=== PATIENT | male | born 1975 | race Caucasian/White ===

== ENCOUNTER 2018-01-20 09:36 | Emergency (ER) | payer MEDICAID, OTHER ==
--- NOTE | 2018-01-20 10:15 | EDPHY ---
H & P Time Seen by Provider: 01/20/18 09:49 HPI/ROS: CHIEF COMPLAINT: Left flank pain HISTORY OF PRESENT ILLNESS: 42-year-old male presents to the emergency department by private vehicle complaining of left flank pain intermittently over last 2 months. The patient states "I think I a kidney stone that is stuck ". He states that he has passed 2 kidney stones on the left side in the past. He has seen his primary care provider for this 3 times in the last 2 months when the pain is really bad. He has had plain film x-rays which have been negative. He is requesting a CT scan. He denies urinary symptoms. He denies symptoms in the right flank. Denies testicular pain. He denies chest pain or difficulty breathing. Denies abdominal pain. No fevers or chills. REVIEW OF SYSTEMS: Constitutional: No fever, no chills. Eyes: No double or blurry vision. ENT: No sore throat. Respiratory: No cough, no shortness of breath. Cardiac: No chest pain. Gastrointestinal: No abdominal pain, vomiting or diarrhea. Genitourinary: No dysuria. Musculoskeletal: Flank pain as above. No neck pain. Skin: No rashes. Neurological: No headache. Past Medical/Surgical History: Kidney stone x2 Social History: Single and lives in [place] Smoking Status: Never smoked Physical Exam: General Appearance: Alert, no distress. Slightly anxious. Eyes: Pupils equal and round. Extraocular motions are all intact. ENT: Mouth: Mucous membranes moist. Respiratory: No wheezing, rhonchi, or rales, lungs are clear to auscultation. Cardiovascular: Regular rate and rhythm. Gastrointestinal: Abdomen is soft and nontender, no masses, no rebound or guarding, bowel sounds normal. Positive CVA tenderness on the left, none on the right. Neurological: Alert and oriented x 3, cranial nerves II through XII grossly intact Skin: Warm and dry, no rashes. Musculoskeletal: Nontender to palpate along the cervical, thoracic or lumbar spine. Neck is supple. Extremities: Full range of motion and no peripheral edema. Psychiatric: Patient is oriented X 3, there is no agitation. Constitutional: Initial Vital Signs Temperature (C) 36.4 C 01/20/18 09:40 Heart Rate 70 01/20/18 09:40 Respiratory Rate 18 01/20/18 09:40 Blood Pressure 101/72 05/31/18 09:40 O2 Sat (%) 99 01/20/18 09:40 O2 Delivery Mode Room Air Allergies/Adverse Reactions: No Known Allergies Allergy (Verified 01/20/18 09:40) Home Medications: Medication Instructions Recorded NK [No Known Home Meds] 01/20/18 Medical Decision Making - Diagnostics Imaging Results: Imaging Impressions Abdomen/Pelvis CT 01/20/18 10:29 Impression: 1. Normal kidneys. No hydronephrosis, nephrolithiasis or ureteral calculi. 2. Normal appendix and bowel pattern. 3. No free fluid or localized intra-abdominal inflammatory process. Findings discussed with Emergency Department physician, Jena Mac PA-C on January 20, 2018 at 1108 hours. Attention: This CT examination is specifically designed to evaluate patients who are clinically suspected of having acute obstructive uropathy. This examination does not use radiographic contrast, and as such, provides only a limited evaluation of the abdomen, pelvis and retroperitoneum. If there is further clinical suspicion for pathological conditions other than obstructive uropathy, a complete CT evaluation of the abdomen and pelvis utilizing intravenous, oral, and rectal contrast should be considered. Imaging: Discussed imaging studies w/ crew caller Radiologist ED Course/Re-evaluation: 42-year-old male presents to the emergency department with left flank pain. Patient states this feels similar to his previous kidney stones and is requesting a CT scan. I discussed the pros and cons of CT imaging including radiation exposure the patient requests CT scan. Laboratory studies and urinalysis are pending. Laboratory studies are all within normal limits with the exception of his urinalysis revealing microscopic hematuria. CT imaging of the abdomen and pelvis without contrast was ordered which revealed no evidence of hydronephrosis or kidney stones. The patient does have 25 pack-year history of smoking. He is at risk for bladder cancer. I encouraged to have close follow-up with primary care provider as well as urologist to make sure that his hematuria has resolved. The left flank pain that the patient is experiencing could be related to musculoskeletal problem or possibly herniated disc or pinched nerve. He will be given referral to on-call neurosurgeon. Patient was comfortable with this plan. Differential Diagnosis: Back pain including but not limited to muscular pain, herniated disc, spine fracture, kidney stones, intra-abdominal causes and urinary tract infection. - Data Points Laboratory Results: Laboratory Results 01/20/18 10:12 01/20/18 10:12 01/20/18 01/20/18 01/20/18 10:12 10:12 09:45 WBC 7.09 10^3/uL 10^3/uL (3.80-9.50) RBC 5.32 10^6/uL 10^6/uL (4.40-6.38) Hgb 16.4 g/dL g/dL (13.7-17.5) Hct 46.4 % % (40.0-51.0) MCV 87.2 fL fL (81.5-99.8) MCH 30.8 pg pg (27.9-34.1) MCHC 35.3 g/dL g/dL (32.4-36.7) RDW 12.5 % % (11.5-15.2) Plt Count 218 10^3/uL 10^3/uL (150-400) MPV 9.1 fL fL (8.7-11.7) Neut % (Auto) 50.9 % % (39.3-74.2) Lymph % (Auto) 37.0 % % (15.0-45.0) Evans % (Auto) 10.4 % % (4.5-13.0) Eos % (Auto) 0.7 % % (0.6-7.6) Baso % (Auto) 0.6 % % (0.3-1.7) Nucleat RBC Rel Count 0.0 % % (0.0-0.2) Absolute Neuts (auto) 3.61 10^3/uL 10^3/uL (1.70-6.50) Absolute Lymphs (auto) 2.62 10^3/uL 10^3/uL (1.00-3.00) Absolute Monos (auto) 0.74 10^3/uL 10^3/uL (0.30-0.80) Absolute Eos (auto) 0.05 10^3/uL 10^3/uL (0.03-0.40) Absolute Basos (auto) 0.04 10^3/uL 10^3/uL (0.02-0.10) Absolute Nucleated RBC 0.00 10^3/uL 10^3/uL (0-0.01) Immature Gran % 0.4 % % (0.0-1.1) Immature Gran # 0.03 10^3/uL 10^3/uL (0.00-0.10) Sodium 142 mEq/L mEq/L (135-145) Potassium 4.6 mEq/L mEq/L (3.3-5.0) Chloride 108 mEq/L mEq/L (97-110) Carbon Dioxide 23 mEq/l mEq/l (22-31) Anion Gap 11 mEq/L mEq/L (8-16) BUN 15 mg/dL mg/dL (7-23) Creatinine 0.9 mg/dL mg/dL (0.7-1.3) Estimated GFR > 60 Glucose 69 mg/dL L mg/dL (70-100) Calcium 9.8 mg/dL mg/dL (8.5-10.4) Urine Color YELLOW Urine Appearance CLEAR Urine pH 6.0 (5.0-7.5) Ur Specific [place] 1.023 (1.002-1.030) Urine Protein NEGATIVE (NEGATIVE) Urine Ketones NEGATIVE (NEGATIVE) Urine Blood 1+ H (NEGATIVE) Urine Nitrate NEGATIVE (NEGATIVE) Urine Bilirubin NEGATIVE (NEGATIVE) Urine Urobilinogen NEGATIVE EU EU (0.2-1.0) Ur Leukocyte Esterase NEGATIVE (NEGATIVE) Urine RBC 50-182 /hpf H /hpf (0-3) Urine WBC 0-1 /hpf /hpf (0-3) Ur Epithelial Cells NONE SEEN /lpf /lpf (NONE-1+) Urine Mucus TRACE /lpf /lpf (NONE-1+) Urine Glucose NEGATIVE (NEGATIVE) Departure - Departure Disposition: Home, Routine, Self-Care Clinical Impression: Hematuria Qualifiers: Hematuria type: unspecified type Qualified Code(s): R31.9 - Hematuria, unspecified Back pain Qualifiers: Back pain location: thoracic back pain Chronicity: chronic Back pain laterality : left Qualified Code(s): M54.6 - Pain in thoracic spine Condition: Good Instructions: Hematuria (ED), Back Pain (ED) Additional Instructions: You have no evidence kidney stone on your CT scan. You do however have hematuria. You should follow up with primary care provider and/or urologist to make sure that the blood heads cleared from your urine. You should follow up with primary care provider as well as Neurosurgery regarding your ongoing back pain. Referrals: Jung Chris MD [Medical Doctor] - 5-7 days, call for appt. (On-call neurosurgeon) Kawnal Rodriguez MD [Medical Doctor] - 5-7 days, call for appt. (On-call urologist)
[2018-01-20 10:21] LABS: PLATELET COUNT 218 10^3/uL (150-400)
[2018-01-20 11:51] VITALS: BP 116/71
== END 2018-01-20 11:59 | disposition home or self-care (01) ==
DX: R31.9 Hematuria, unspecified (principal); M54.6 Pain in thoracic spine

== ENCOUNTER 2018-04-09 | Emergency (ER) | payer MEDICAID | END 2018-04-09 12:30 | disposition home or self-care (01) | DX: R10.12 Left upper quadrant pain (principal); E86.9 Volume depletion, unspecified; F17.200 Nicotine dependence, unspecified, uncomplicated | CPT/HCPCS: 82435-PO; 82565-PO; 82947-PO; 84132-PO; 84295-PO; 84520-PO; 85014-PO; 96374; J1630; Q9967 ==